=== PATIENT | female | born 1985 | race Caucasian/White ===

== ENCOUNTER 2019-03-02 14:00 | Outpatient (CLI) | payer OTHER ==
--- NOTE | 2019-03-02 14:47 | MMO ---
Bilateral MAMMO Bilat Diag [facility]. CLINICAL HISTORY: Patient is 33 years old and is seen for diagnostic exam. The patient has no family history of breast cancer. The patient has no personal history of cancer. VIEWS: The views performed were: bilateral craniocaudal with tomosynthesis; bilateral mediolateral oblique with tomosynthesis; and bilateral mediolateral with tomosynthesis. FILMS COMPARED: The present examination has been compared to a prior imaging study performed at [facility] on 03/02/2019. This study has been interpreted with the assistance of computer-aided detection. MAMMOGRAM FINDINGS: There are scattered fibroglandular densities. Multiple oil cysts are seen in the left breast. There are no suspicious masses, suspicious calcifications, or new areas of architectural distortion. IMPRESSION: THERE IS NO MAMMOGRAPHIC EVIDENCE OF MALIGNANCY. A ROUTINE FOLLOW-UP MAMMOGRAM AT AGE 38 IS RECOMMENDED. THE RESULTS OF THIS EXAM WERE SENT TO THE PATIENT. ACR BI-RADS Category 2 - Benign finding MAMMOGRAPHY NOTE: 1. A negative mammogram report should not delay a biopsy if a dominant of clinically suspicious mass is present. 2. Approximately 10% to 15% of breast cancers are not detected by mammography. 3. Adenosis and dense breasts may obscure an underlying neoplasm. Reported by: KATIE PAL MD Electonically Signed: [id number]
--- NOTE | 2019-03-02 18:37 | ULT ---
LEFT BREAST ULTRASOUND: Date: 03/02/19 COMPARISON: Mammogram dated 03/02/19. HISTORY: 33-year-old female with palpable mass in the upper outer aspect of the left breast. Patient has histo ry of prior trauma to the left breast. TECHNIQUE: Multiplanar Saunders scale and color Doppler images were obtained in a left breast ultrasound. FINDINGS: There are numerous cysts in the left breast. The largest measures 1.1 cm in greatest dimension. These correspond to the mammographic finding of multiple oil cysts within the left breast. No suspicious m ass or shadowing is seen. IMPRESSION: BI-RADS Category 2 - Benign findings. Annual screening mammography is recommended at the age of 40. POS: TOM
== END 2019-03-02 14:01 | disposition home or self-care (01) ==
LOC: BICMAMMO 14:00
PROVIDERS: ATTEND Internal Medicine
DX: N63.20 Unspecified lump in the left breast, unspecified quadrant (principal)
CPT/HCPCS: 77066; G0279